=== PATIENT | female | born 1970 | race Caucasian/White ===

== ENCOUNTER 2017-12-26 20:46 | Emergency (ER) | payer BC, OTHER ==
[~2017-12-26] VITALS: Ht 167.6 cm; Wt 143.1 kg
[2017-12-26 20:48] VITALS: TEMP 37.1; Ht 167.6 cm; Wt 143.1 kg
[2017-12-26] MEDS ORDERED: ALBUTEROL HFA 8 GM INHALER INH ONE (21:00)
--- NOTE | 2017-12-26 21:07 | EMERGENCY ROOM VISIT NOTE ---
History Report prepared by Allegra: Lauren Horvath Under the Supervision of: Dr. Dallas Lawrence M.D. First contact with patient: 20:54 Chief Complaint: RESPIRATORY PROBLEMS Stated Complaint: EXPOSED TO BONDO CHEMICAL,BURNING IN LUNGS History of Present Illness The patient is a 47 year old female who presents to the Emergency Room with complaints of respiratory problems beginning an hour prior to arrival. The patient states that there was a crack in her bathtub so she applied Bondo to it. She reports that thereafter she could smell the fumes. The patient states that she was only in her house for 15-20 minutes before she left for the day. She reports that when she got home she could smell the fumes throughout the house, so she opened the windows for a couple of hours. She states that after this she could not smell it anymore. The patient reports that around 1999 she took a shower in the same bathtub, and then was sitting in her living room when she experienced a burning sensation in her lungs and esophagus. The patient denies having nausea and headache, but reports having a cough as she is getting over a cold. She reports that in the wintertime she occasionally has a hard time catching her breath, but denies being diagnosed with respiratory problems. The patient states that she is not a smoker. Source of History: patient Onset: hour prior to arrival Position: other (global) Quality: other (respiratory problems ) Associated Symptoms: + cough, No headache, No nausea Review of Systems See HPI for pertinent positives & negatives. A total of 10 systems reviewed and were otherwise negative. Past Medical & Surgical Medical Problems: (1) Asthma (2) Hypertension (3) Sleep apnea Surgical Problems: (1) [place] teeth removed Family History Cancer Diabetes mellitus FH: heart disease FHx: gallbladder disease FHx: lung disease Hypertension Social History Smoking Status: Never Smoker Marital Status: single Housing Status: lives alone Current/Historical Medications Scheduled Ascorbic Acid (Vitamin C), 1 TAB PO DAILY Aspirin (Aspirin Ec), 81 MG PO DAILY Cholecalciferol (Vitamin D), 4,000 UNITS PO DAILY Echinacea (Echinacea), 1 TAB PO DAILY Fiber (Fiber Select Gummies), 2 TABS PO DAILY Fish Oil ([place]-3), 2 CAP PO DAILY Fluoxetine (Prozac), 1 TAB PO DAILY Hydrochlorothiazide (Hydrochlorothiazide), 1 TAB PO DAILY Levothyroxine Sodium (Synthroid), 75 MCG PO DAILY Loratadine (Claritin), 10 MG PO DAILY Multivitamins/Minerals (Mvi With Minerals), 1 TAB PO DAILY [Potassium Otc], 99 MG PO DAILY Allergies Coded Allergies: Amoxicillin (Verified Allergy, Unknown, rash, 12/26/17) Physical Exam Vital Signs Date Time Temp Pulse Resp B/P (MAP) Pulse Ox O2 Delivery O2 Flow Rate FiO2 12/26/17 22:10 88 18 130/84 93 Room Air 12/26/17 21:17 92 12/26/17 20:48 37.1 98 18 179/75 93 Room Air Physical Exam GENERAL: Patient is in no acute distress. HEENT: No acute trauma, normocephalic atraumatic, mucous membranes moist, mild nasal congestion, no scleral icterus. THROAT: No throat erythema or exudate. No uvular edema. NECK: No stridor, no adenopathy, no meningismus, trachea is midline. LUNGS: Somewhat diminished breath sounds but no wheezing or rhonchi. Breath sounds are equal. No respiratory distress. HEART: Without murmurs gallops or rubs, regular rate and rhythm. ABDOMEN: Soft, nontender, bowel sounds positive, no hernias, no peritonitis. EXTREMITIES: No cyanosis or edema, full range of motion of all the joints without pain or difficulty, no signs for acute trauma. NEUROLOGIC: Oriented x 3, no acute motor or sensory deficits, no focal weakness. SKIN: No rash, no jaundice, no diaphoresis. Medical Decision & Procedures ER Provider Diagnostic Interpretation: Radiology results as stated below per my review and radiologist interpretation: CHEST ONE VIEW PORTABLE CLINICAL HISTORY: sob dyspnea COMPARISON STUDY: No previous studies for comparison. FINDINGS: The bones soft tissues and hemidiaphragms are normal. The cardiomediastinal silhouette is normal. The lungs are clear. The pulmonary vasculature is normal. IMPRESSION: Negative chest. The above report was generated using voice recognition software. It may contain grammatical, syntax or spelling errors. Electronically signed by: Austin Warner M.D. 12/26/2017 9:50 PM Dictated Date/Time: 12/26/2017 9:50 PM Medications Administered Medications (Trade) Dose Ordered Sig/[place] Route Start Time Stop Time Status Last Admin Dose Admin Albuterol (Ventolin Hfa Inhaler) 3 puffs NOW ONCE INH 12/26/17 21:00 12/26/17 21:19 DC 12/26/17 21:27 3 PUFFS ECG Per My Interpretation Indication: SOB/dyspnea Rate (beats per minute): 84 Rhythm: normal sinus Findings: other (no ST elevation, no PVCs) ED Course 2054: The patient was evaluated in room B4B. A complete history and physical exam was performed. 2099: Ordered Albuterol 3 puffs INH. 2102: Discussed the patient's case with the Poison Control Center. The poison control center said that there is nothing to worry about and that it is common for people to have lung irritation. 2199: Reevaluated the patient. Discussed results and discharge instructions: She verbalized understanding and agreement. The patient is ready for discharge. Medical Decision The patient is a 47 year old female who presents to the ED with complaints of respiratory problems. Differential diagnoses considered include chemical irritation, bronchial spasm, pneumonia, pneumothorax, and cardiac ischemia. The patient presents with some burning in the area of her mid chest/lungs. She inhaled fumes earlier and she was concerned. She was not truly short of breath. She states that she is recovering from a cold already and she also has a baseline history of some bronchial irritation/asthma. A chest film was done, there was no pneumothorax, pneumonia or mediastinal widening. No CHF. EKG shows a normal sinus rhythm, no acute ischemia. The patient was given albuterol via [facility]. I did contact the poison center, the Bondo causes irritation, this is not toxic or otherwise worrisome. The patient was reassured, she is being discharged home. Medication Reconcilliation Current Medication List: was personally reviewed by me Blood Pressure Screening Patient's blood pressure: Elevated blood pressure Blood pressure disposition: Referred to PCP Consults Time Called: 2101 Consulting Physician: Poison Control Center Returned Call: 2102 Discussed the patient's case. The poison control center said that there is nothing to worry about and that it is common for people to have lung irritation. Impression Primary Impression: Exposure to chemical irritant Scribe Attestation The scribe's documentation has been prepared under my direction and personally reviewed by me in its entirety. I confirm that the note above accurately reflects all work, treatment, procedures, and medical decision making performed by me. Departure Information Dispostion Home / Self-Care Referrals No Doctor, Assigned (PCP) Forms HOME CARE DOCUMENTATION FORM, IMPORTANT VISIT INFORMATION, WORK / SCHOOL INSTRUCTIONS Patient Instructions My Arthena Additional Instructions albuterol 2-3 puffs every 4-6 hours for the lungs stay out of the environment until fumes have cleared return if worsening chest film and ECG were ok today
[2017-12-26] MEDS ORDERED: PRED20TA PO (21:11)
[2017-12-26] MEDS ORDERED: HYDR12.55 PO (21:30)
[2017-12-26] MEDS ORDERED: LEVO75TA PO (21:30)
[2017-12-26] MEDS ORDERED: FLUO20CA35 PO (21:30)
[2017-12-26] MEDS ORDERED: MULT-513 PO (21:39)
[2017-12-26] MEDS ORDERED: ASPI81TA28 PO (21:39)
[2017-12-26] MEDS ORDERED: FIBE1CHW PO (21:39)
[2017-12-26] MEDS ORDERED: POTASSIUM OTC PO (21:39)
[2017-12-26] MEDS ORDERED: ECHI80CA PO (21:39)
[2017-12-26] MEDS ORDERED: CHOL200010 PO (21:39)
[2017-12-26] MEDS ORDERED: ASCA500 PO (21:39)
[2017-12-26] MEDS ORDERED: CLR10 PO (21:39)
[2017-12-26] MEDS ORDERED: OMEG10007 PO (21:39)
--- NOTE | 2017-12-26 21:51 | DIAGNOSTIC IMAGING REPORT ---
CHEST ONE VIEW PORTABLE CLINICAL HISTORY: sob dyspnea COMPARISON STUDY: No previous studies for comparison. FINDINGS: The bones soft tissues and hemidiaphragms are normal. The cardiomediastinal silhouette is normal. The lungs are clear. The pulmonary vasculature is normal. IMPRESSION: Negative chest. The above report was generated using voice recognition software. It may contain grammatical, syntax or spelling errors. Electronically signed by: Austin Warner M.D. 12/26/2017 9:50 PM Dictated Date/Time: 12/26/2017 9:50 PM
[2017-12-26 22:10] VITALS: BP 130/84; PULSE 88; O2SAT 93
== END 2017-12-26 22:11 | disposition home or self-care (01) ==
LOC: C.EDB 20:47
DX: T59.91XA Toxic effect of unspecified gases, fumes and vapors, accidental (unintentional), initial encounter (principal); Y92.012 Bathroom of single-family (private) house as the place of occurrence of the external cause; J45.909 Unspecified asthma, uncomplicated; I10 Essential (primary) hypertension; G47.30 Sleep apnea, unspecified; Z80.9 Family history of malignant neoplasm, unspecified; Z83.3 Family history of diabetes mellitus; Z82.49 Family history of ischemic heart disease and other diseases of the circulatory system; Z83.79 Family history of other diseases of the digestive system; Z83.6 Family history of other diseases of the respiratory system; Z79.82 Long term (current) use of aspirin; Z79.899 Other long term (current) drug therapy; Z88.1 Allergy status to other antibiotic agents